=== PATIENT | female | born 1990 | race Caucasian/White ===

== ENCOUNTER 2016-07-29 02:01 | Emergency (ER) | payer BC, OTHER | END 2016-07-29 02:57 | disposition home or self-care (01) | LOC: ER 02:01 | DX: L02.411 Cutaneous abscess of right axilla (principal); L02.412 Cutaneous abscess of left axilla; I10 Essential (primary) hypertension; K21.9 Gastro-esophageal reflux disease without esophagitis; F90.9 Attention-deficit hyperactivity disorder, unspecified type; F41.9 Anxiety disorder, unspecified; Z79.899 Other long term (current) drug therapy ==

== ENCOUNTER 2016-10-13 05:48 | Emergency (ER) | payer BC, OTHER | END 2016-10-13 06:53 | disposition home or self-care (01) | LOC: ER 05:48 | DX: L02.412 Cutaneous abscess of left axilla (principal); L98.8 Other specified disorders of the skin and subcutaneous tissue; I10 Essential (primary) hypertension; F41.9 Anxiety disorder, unspecified; F90.9 Attention-deficit hyperactivity disorder, unspecified type; Z79.899 Other long term (current) drug therapy ==